=== PATIENT | female | born 1950 | race Caucasian/White ===

== ENCOUNTER → 2019-08-13 | Outpatient (CLI) | payer OTHER ==
[~2019-08-13] MED LIST: AMLODIPINE BESY10 MG PO; ASPIR 8181 MG PO; BACTRIM DS TAB1 EACH PO; BUSPIRONE HCL15 MG PO; CENTRUM SILVER1 EAC4 PO; CO Q-10100 MG PO; DEXILANT60 MG PO; DICLOFENAC SODI75 MG PO; DIFLUCAN150 MG PO; FENTANYL PA12 MCG/H1 TP; FLEXERIL PO; KRILL OIL500 MG PO; METOPROLOL SUCC50 MG PO; NORCO 10-325 T1 EACH PO; SIMVASTATIN40 MG PO; VALSARTAN-HCTZ1 EAC4 PO; VENLAFAXIN75 MG/1 T1 PO; VITAMIN B-12500 MCG PO; VITAMIN D-32000 UNIT PO; XANAX 0.5 MG0.5 MG PO; ZYRTEC10 M5 PO
--- NOTE | 2019-08-25 17:36 | SLE ---
[facility] [address] POLYSOMNOGRAPHY STUDY Name: TALISHARAIZAMUMTAZ Mela Room #: REG [facility]#: [id number] Admission: 08/13/19 Attend Phys: Antoni Ahuja MD Discharge: Date of : 52 Report #: [id number] THIS REPORT FOR: //name// CC: Antoni Bravo MD [facility] DATE OF SERVICE: 08/14/2019 SLEEP STUDY ATTENDING PHYSICIAN: Dr. Dale Bravo. The patient is 69 years old who weighs 280 pounds with a BMI of 48.1. The patient's Berwyn score was 16. The patient underwent split night study performed at [facility]. During the night study, the patient spent 443 minutes in bed and slept for 347 minutes with a sleep efficiency of 78%. Sleep latency was 6.4 minutes with a REM latency of 326 minutes. Sleep architecture showed normal stage 1 sleep, increased stage 2 sleep, absent slow wave and reduced REM sleep, which was 5% of the total sleep time. During the initial diagnostic portion of the study, the patient slept for 162 minutes. During that time, the patient had 17 obstructive apneas, no mixed apneas, no central apneas and 56 hypopneas. The patient's apnea hypopnea index was 27 per hour. REM sleep was not seen during the diagnostic portion. Supine AHI was 27 per hour as well. EKG monitoring revealed an average heart rate of 82 beats per minute. Occasional PVCs seen. PLMS were seen at an index of 28 per hour and 8 per hour caused EEG arousals. Nocturnal oximetry study revealed an average oxygen saturation of 87% with a lowest of 79%. 158 minutes were spent in oxygen saturation of less than 89%. The patient met the criteria for CPAP initiation. It was started at 7 cm of water and titrated up to 19 cm of water. At the final pressure, the patient slept for 36 minutes. The patient had supine sleep, but no REM sleep. The patient's AHI was reduced to 3.3 per hour. Oxygen saturation remained above 88%. IMPRESSION: 1. Moderate sleep apnea-hypopnea syndrome at an AHI of 27 per hour. Absence of [facility] [address] [place] [address] POLYSOMNOGRAPHY STUDY Name: WMSHIVAMUMTAZ Mela [id number] Admission: 08/13/19 Attend Phys: Antoni Ahuja MD Discharge: Date of : 52 Report #: [id number] REM sleep during the diagnostic portion can underestimate the severity of sleep apnea. 2. Nocturnal hypoxia secondary to obstructive sleep apnea, but resolved with CPAP. 3. Moderate periodic limb movements of sleep. RECOMMENDATIONS: 1. CPAP at 19 cm water completely eliminated the patient's sleep apnea and should be used on a nightly basis. 2. Follow up in 4-6 weeks to assess compliance with CPAP and to document clinical improvement. 3. Weight loss is strongly advised. 4. Avoid [employer] depressants. 5. Cautioned regarding driving until symptoms of sleep apnea resolve with the use of CPAP. 6. PLMS does not need to be treated unless the patient has symptoms of restless legs during the day. <ELECTRONICALLY SIGNED> By: Luke Washburn MD 08/25/19 [id number] Luke Washburn MD /nt
== END ==
LOC: SLEEPLAB 13:54
DX: G47.33 Obstructive sleep apnea (adult) (pediatric) (principal)

== ENCOUNTER → 2020-05-04 | Outpatient (CLI) | payer OTHER | LOC: SJCVC 13:14 | PROVIDERS: ATTEND Internal Medicine | DX: R94.31 Abnormal electrocardiogram [ECG] [EKG] (principal); I11.0 Hypertensive heart disease with heart failure; I50.32 Chronic diastolic (congestive) heart failure; I25.119 Atherosclerotic heart disease of native coronary artery with unspecified angina pectoris; E78.5 Hyperlipidemia, unspecified; G47.33 Obstructive sleep apnea (adult) (pediatric); M06.09 Rheumatoid arthritis without rheumatoid factor, multiple sites; K21.9 Gastro-esophageal reflux disease without esophagitis; M81.0 Age-related osteoporosis without current pathological fracture; Z79.899 Other long term (current) drug therapy; Z82.49 Family history of ischemic heart disease and other diseases of the circulatory system; Z87.891 Personal history of nicotine dependence ==

== ENCOUNTER → 2020-05-12 | Outpatient (CLI) | payer OTHER | LOC: SJCVCIMAG 10:05 | PROVIDERS: ATTEND Internal Medicine | DX: I08.3 Combined rheumatic disorders of mitral, aortic and tricuspid valves (principal); I25.10 Atherosclerotic heart disease of native coronary artery without angina pectoris ==

== ENCOUNTER → 2021-12-14 | Outpatient (CLI) | payer OTHER | LOC: SJCVC 14:40 | PROVIDERS: ATTEND Internal Medicine | DX: I25.119 Atherosclerotic heart disease of native coronary artery with unspecified angina pectoris (principal); I11.0 Hypertensive heart disease with heart failure; I50.32 Chronic diastolic (congestive) heart failure; E78.5 Hyperlipidemia, unspecified; G47.33 Obstructive sleep apnea (adult) (pediatric); M06.09 Rheumatoid arthritis without rheumatoid factor, multiple sites; K22.70 Barrett's esophagus without dysplasia; M21.612 Bunion of left foot; M21.611 Bunion of right foot; M47.892 Other spondylosis, cervical region; K21.9 Gastro-esophageal reflux disease without esophagitis; E78.00 Pure hypercholesterolemia, unspecified; M20.42 Other hammer toe(s) (acquired), left foot; M20.41 Other hammer toe(s) (acquired), right foot; M19.90 Unspecified osteoarthritis, unspecified site; M81.0 Age-related osteoporosis without current pathological fracture; M06.9 Rheumatoid arthritis, unspecified; Z79.899 Other long term (current) drug therapy; Z87.891 Personal history of nicotine dependence; Z88.8 Allergy status to other drugs, medicaments and biological substances ==